=== PATIENT | female | born 1980 | race Caucasian/White ===

== ENCOUNTER 2016-03-01 17:16 | Emergency (ER) | payer MEDICAID ==
[2016-03-01] MEDS ORDERED: DIAZEPAM 5 MG TAB ONE (19:27)
[2016-03-01] MEDS ORDERED: KETOROLAC 30 MG/ML VIAL ONE (19:28)
[2016-03-01] MEDS ORDERED: MORPHINE 4 MG/ML SYR ONE (19:28)
[2016-03-01] MEDS ORDERED: SODIUM CHLORIDE 0.9% 1,000 ML ONE (19:28)
[2016-03-01] MEDS ORDERED: ONDANSETRON 4 MG VIAL ONE (19:28)
== END 2016-03-01 21:57 | disposition home or self-care (01) ==
LOC: ER 17:16
CPT/HCPCS: 36415; 80053; 81001; 84439; 84443; 84703; 85025; 87088; 96361; 96374; 96375